=== PATIENT | male | born 1950 | race Caucasian/White ===

== ENCOUNTER 2020-10-30 16:43 | Inpatient (IN) | payer OTHER ==
[~2020-10-30] VITALS: Ht 167.6 cm; Wt 51.7 kg
[2020-10-30 17:20] LABS: HEMATOCRIT. 30.8 % (42.0-52.0); HEMOGLOBIN. 10.3 g/dL (14.0-18.0); MEAN CORPUSCULAR HEMOGLOBIN 29.5 pg (28.0-32.0); MEAN CORPUSCULAR VOLUME 88.6 fL (80.0-94.0); MEAN PLATELET VOLUME 6.7 fl (7.4-10.4); PLATELET 423 x1000/uL (130-400); RED BLOOD CELL COUNT 3.48 mill/uL (4.7-6.1); RED CELL DISTRIBUTION WIDTH 14.4 % (11.6-14.6)
[2020-10-30 17:31] LABS: INR 1.1; PROTHROMBIN TIME 11.2 sec (9.6-11.0)
[2020-10-30 17:36] LABS: CHLORIDE 95 mEq/L (98-107)
[2020-10-30 18:11] LABS: PLATELET ESTIMATE INCREASED
[2020-10-30 18:34] LABS: CLARITY URINE CLEAR (CLEAR); COLOR URINE YELLOW (YELLOW); KETONES URINE TRACE (NEGATIVE); LEUKOCYTE ESTERASE URINE 2+ (NEGATIVE); NITRITE URINE NEGATIVE (NEGATIVE); OCCULT BLOOD URINE TRACE (NEGATIVE); PROTEIN URINE 2+ (NEGATIVE); SPECIFIC GRAVITY URINE 1.021 (1.005-1.030); UROBILINOGEN URINE 0.2 E.U./dL (0.2-1.0)
[2020-10-30] MEDS ORDERED: CLINDAMYCIN 600 MG in DEXTROSE 5% WATER 50 ML IV ONE (19:00)
[2020-10-30] MEDS ORDERED: PIPERACILLIN/TAZOBACTAM 3.375GM/50ML PREMIX IV ONE (19:00)
[2020-10-30] MEDS ORDERED: VANCOMYCIN 1 G PREMIX 200 ML IV SCH (19:00)
[2020-10-30] MEDS ORDERED: PIPERACILLIN/TAZ 3.375G PREMIX 50 ML IV SCH (19:15)
[2020-10-30] MEDS ORDERED: CLINDAMYCIN 600MG PREMIX 50 ML IV SCH (19:15)
[2020-10-30] MEDS ORDERED: SODIUM CHLORIDE 0.9% 1,000 ML IV SCH (19:30)
[2020-10-30] MEDS ORDERED: INSULIN REGULAR (HUMULIN R) 300UNITS/3ML VIAL SUBCUT SCH (19:30)
[2020-10-30] MEDS ORDERED: TRAMADOL 50MG TABLET PO PRN (23:45)
[2020-10-30] MEDS ORDERED: DEXTROSE 50% WATER 50ML SYRINGE IV PRN (23:45)
[2020-10-30] MEDS ORDERED: INSULIN GLARGINE UD 100 UNITS/ML SYR SUBCUT NR (23:45)
[2020-10-30] MEDS ORDERED: ONDANSETRON HCL 4MG/2ML INJ IV PRN (23:45)
[2020-10-31] MEDS ORDERED: PIPERACILLIN/TAZOBACTAM 3.375 G in DEXT 5% WATER 100 ML IV SCH (04:00)
[2020-10-31] MEDS: VANCOMYCIN 750 MG PREMIX 150 ML IV SCH ×2 (06:12→17:24)
[2020-10-31] MEDS ORDERED: INSULIN GLARGINE UD 100 UNITS/ML SYR SUBCUT SCH (10:00)
[2020-10-31 12:00] VITALS: BP 125/55
[2020-10-31 13:00] VITALS: BP 125/55
[2020-10-31] MEDS: BLOOD SUGAR DIAGNOSTIC STRIP TEST SCH ×3 (13:00→21:59)
[2020-10-31] MEDS: INSULIN LISPRO 100 UNITS/ML SUBCUT SCH ×3 (13:00→22:05)
[2020-10-31] MEDS: PIPERACILLIN/TAZOBACTAM 3.375 G in DEXT 5% WATER 100 ML IV SCH ×2 (14:56→22:03)
[2020-10-31 16:00] VITALS: BP 118/53
[2020-10-31] MEDS ORDERED: INFLUENZA VACCINE 05/PF 0.5 ML VIAL IM ONE (22:00)
[2020-10-31] MEDS ORDERED: PNEUMOCOCCAL 23-VAL P-SAC VAC 0.5 ML IM ONE (22:00)
[2020-10-31] MEDS: INSULIN GLARGINE UD 100 UNITS/ML SYR SUBCUT SCH (22:05)
[2020-11-01] MEDS: PIPERACILLIN/TAZOBACTAM 3.375 G in DEXT 5% WATER 100 ML IV SCH ×4 (02:37→20:34)
[2020-11-01] MEDS: VANCOMYCIN 750 MG PREMIX 150 ML IV SCH ×2 (06:19→06:35)
[2020-11-01 06:25] LABS: BASOPHILS % 0.1 % (0.0-2.0); EOSINOPHILS % 0.1 % (0.0-5.0); HEMATOCRIT. 27.2 % (42.0-52.0); HEMOGLOBIN. 9.5 g/dL (14.0-18.0); LYMPHOCYTES % 11.5 % (20.0-50.0); MEAN CORPUSCULAR HEMOGLOBIN 30.8 pg (28.0-32.0); MEAN CORPUSCULAR VOLUME 88.5 fL (80.0-94.0); MEAN PLATELET VOLUME 6.6 fl (7.4-10.4); MONOCYTES % 4.3 % (2.0-8.0); PLATELET 365 x1000/uL (130-400); RED BLOOD CELL COUNT 3.07 mill/uL (4.7-6.1); RED CELL DISTRIBUTION WIDTH 14.4 % (11.6-14.6)
[2020-11-01] MEDS: INSULIN LISPRO 100 UNITS/ML SUBCUT SCH ×4 (07:00→21:00)
[2020-11-01 07:01] LABS: CHLORIDE 105 mEq/L (98-107)
[2020-11-01 08:00] VITALS: BP 140/62
[2020-11-01] MEDS: TAMSULOSIN HCL 0.4MG SR CAPSULE PO SCH ×2 (09:00→09:15)
[2020-11-01] MEDS: INSULIN GLARGINE UD 100 UNITS/ML SYR SUBCUT SCH ×2 (09:24→22:00)
[2020-11-01] MEDS: BLOOD SUGAR DIAGNOSTIC STRIP TEST SCH ×4 (09:24→22:00)
[2020-11-01 12:04] VITALS: BP 149/68
[2020-11-01 12:19] VITALS: BP 138/66
[2020-11-01 16:00] VITALS: BP 136/67
[2020-11-01 20:00] VITALS: BP 146/63
[2020-11-01] MEDS: VANCOMYCIN 500 MG PREMIX 100 ML IV SCH (22:00)
[2020-11-01 23:36] VITALS: BP 121/54
[2020-11-02] MEDS: PIPERACILLIN/TAZOBACTAM 3.375 G in DEXT 5% WATER 100 ML IV SCH ×4 (01:46→21:08)
[2020-11-02 04:00] VITALS: BP 147/75
[2020-11-02] MEDS: INSULIN LISPRO 100 UNITS/ML SUBCUT SCH ×4 (06:49→21:00)
[2020-11-02] MEDS: BLOOD SUGAR DIAGNOSTIC STRIP TEST SCH ×4 (09:00→21:11)
[2020-11-02] MEDS: INSULIN GLARGINE UD 100 UNITS/ML SYR SUBCUT SCH ×2 (10:00→22:00)
[2020-11-02] MEDS: VANCOMYCIN 500 MG PREMIX 100 ML IV SCH ×2 (10:00→21:08)
[2020-11-02] MEDS: TAMSULOSIN HCL 0.4MG SR CAPSULE PO SCH (11:48)
[2020-11-02 19:00] VITALS: BP 135/69
[2020-11-03] VITALS: BP_SYST 108; BP_SYST 128; BP_DIAS 45; BP_DIAS 70
[2020-11-03] MEDS: PIPERACILLIN/TAZOBACTAM 3.375 G in DEXT 5% WATER 100 ML IV SCH ×4 (01:09→20:39)
[2020-11-03 04:00] VITALS: BP 119/98
[2020-11-03] MEDS: INSULIN LISPRO 100 UNITS/ML SUBCUT SCH ×4 (06:15→20:40)
[2020-11-03 08:00] VITALS: BP 134/54
[2020-11-03 08:38] LABS: CREATINE KINASE 100 IU/L (39-308)
[2020-11-03] MEDS: BLOOD SUGAR DIAGNOSTIC STRIP TEST SCH ×4 (09:00→20:41)
[2020-11-03] MEDS: TAMSULOSIN HCL 0.4MG SR CAPSULE PO SCH (09:57)
[2020-11-03] MEDS: INSULIN GLARGINE UD 100 UNITS/ML SYR SUBCUT SCH ×2 (10:40→22:00)
[2020-11-03] MEDS: VANCOMYCIN 500 MG PREMIX 100 ML IV SCH ×2 (10:43→22:56)
[2020-11-03 19:04] VITALS: BP 135/54
[2020-11-03 20:00] VITALS: BP 93/40
[2020-11-04] VITALS: BP 104/52
[2020-11-04] MEDS: PIPERACILLIN/TAZOBACTAM 3.375 G in DEXT 5% WATER 100 ML IV SCH ×4 (02:38→20:33)
[2020-11-04 04:00] VITALS: BP 100/60
[2020-11-04 05:34] LABS: CHLORIDE 104 mEq/L (98-107)
[2020-11-04] MEDS: INSULIN LISPRO 100 UNITS/ML SUBCUT SCH ×4 (06:52→21:16)
[2020-11-04] MEDS ORDERED: POTASSIUM CHLORIDE 20MEQ TABLET SR PO NR (07:00)
[2020-11-04 08:04] VITALS: BP 120/58
[2020-11-04] MEDS: TAMSULOSIN HCL 0.4MG SR CAPSULE PO SCH (08:22)
[2020-11-04] MEDS: BLOOD SUGAR DIAGNOSTIC STRIP TEST SCH ×4 (09:00→20:36)
[2020-11-04] MEDS: INSULIN GLARGINE UD 100 UNITS/ML SYR SUBCUT SCH (10:00)
[2020-11-04] MEDS: SODIUM CHLORIDE 0.45% 1,000 ML IV SCH (14:07)
[2020-11-04] MEDS ORDERED: VANCOMYCIN 750 MG PREMIX 150 ML IV SCH (19:00)
[2020-11-04 20:00] VITALS: BP 127/52
[2020-11-05] VITALS: BP 124/52
[2020-11-05] MEDS: SODIUM CHLORIDE 0.45% 1,000 ML IV SCH ×2 (00:24→16:44)
[2020-11-05] MEDS: PIPERACILLIN/TAZOBACTAM 3.375 G in DEXT 5% WATER 100 ML IV SCH ×4 (01:08→21:13)
[2020-11-05 04:00] VITALS: BP 130/67
[2020-11-05] MEDS: INSULIN LISPRO 100 UNITS/ML SUBCUT SCH ×4 (07:00→21:28)
[2020-11-05 08:00] VITALS: BP 132/57
[2020-11-05] MEDS: TAMSULOSIN HCL 0.4MG SR CAPSULE PO SCH (08:34)
[2020-11-05] MEDS: BLOOD SUGAR DIAGNOSTIC STRIP TEST SCH ×4 (08:35→21:17)
[2020-11-05] MEDS ORDERED: LIDOCAINE HCL 1% 20ML VIAL (Pyxis) INJ ONE ×2 (10:31→11:26)
[2020-11-05] MEDS ORDERED: SODIUM CHLORIDE 0.9% INJ 10ML FLUSH IVF ONE (10:31)
[2020-11-05] MEDS ORDERED: BUPIVACAINE HCL 0.5% (5MG/ML) 50ML ONE (10:31)
[2020-11-05] MEDS ORDERED: SKIN ADHESIVE 0.7 GM EA TOP ONE (10:31)
[2020-11-05] MEDS ORDERED: BACITRACIN 50,000 UNITS/VIAL ONE (10:32)
[2020-11-05] MEDS ORDERED: PROPOFOL 200MG/20ML VIAL IV ONE (11:11)
[2020-11-05] MEDS ORDERED: MIDAZOLAM HCL 2 MG/2 ML VIAL ONE (11:11)
[2020-11-05] MEDS ORDERED: FENTANYL CITRATE/PF 50MCG/ML 2ML VIAL ONE (11:11)
[2020-11-05] MEDS ORDERED: ONDANSETRON HCL 4MG/2ML INJ ONE (11:26)
[2020-11-05] MEDS ORDERED: EPHEDRINE SULFATE 50MG/ML VIAL ONE (11:26)
[2020-11-05] MEDS ORDERED: ONDANSETRON HCL 4MG/2ML INJ IV PRN (11:45)
[2020-11-05] MEDS ORDERED: SODIUM CHLORIDE 0.9% 1,000 ML IV ONE (11:45)
[2020-11-05] MEDS ORDERED: MEPERIDINE HCL/PF 25MG/ML CPJ IV PRN (11:45)
[2020-11-05] MEDS ORDERED: MORPHINE SULFATE 2 MG/ML CPJ (NOT FOR IM USE) IV PRN (11:45)
[2020-11-05] MEDS ORDERED: HYDROMORPHONE HCL/PF 2MG/ML CPJ IV PRN (11:45)
[2020-11-05 17:16] LABS: BASOPHILS % 0.3 % (0.0-2.0); EOSINOPHILS % 0.3 % (0.0-5.0); HEMATOCRIT. 23.8 % (42.0-52.0); LYMPHOCYTES % 11.8 % (20.0-50.0); MEAN CORPUSCULAR VOLUME 88.6 fL (80.0-94.0); MONOCYTES % 3.9 % (2.0-8.0); NEUTROPHILS % 83.7 % (40.0-76.0); PLATELET 159 x1000/uL (130-400); RED BLOOD CELL COUNT 2.68 mill/uL (4.7-6.1)
[2020-11-05 17:25] LABS: CHLORIDE 104 mEq/L (98-107)
[2020-11-05] MEDS: VANCOMYCIN 750 MG PREMIX 150 ML IV SCH (18:22)
[2020-11-06] VITALS: BP 125/51
[2020-11-06] MEDS: PIPERACILLIN/TAZOBACTAM 3.375 G in DEXT 5% WATER 100 ML IV SCH ×4 (01:22→20:49)
[2020-11-06] MEDS: SODIUM CHLORIDE 0.45% 1,000 ML IV SCH (02:45)
[2020-11-06 04:00] VITALS: BP 116/55
[2020-11-06] MEDS: BLOOD SUGAR DIAGNOSTIC STRIP TEST SCH ×4 (05:33→21:00)
[2020-11-06] MEDS: INSULIN LISPRO 100 UNITS/ML SUBCUT SCH ×4 (06:31→21:00)
[2020-11-06 08:00] VITALS: BP 97/43
[2020-11-06] MEDS: TAMSULOSIN HCL 0.4MG SR CAPSULE PO SCH (08:59)
[2020-11-06 12:00] VITALS: BP 133/55
[2020-11-06 15:06] LABS: ANA IFA Negative (.)
[2020-11-06 16:00] VITALS: BP 131/54
[2020-11-06] MEDS: VANCOMYCIN 750 MG PREMIX 150 ML IV SCH (18:21)
[2020-11-06 20:00] VITALS: BP 112/32
[2020-11-06] MEDS ORDERED: ACETAMINOPHEN 325MG TABLET PO PRN (22:00)
[2020-11-06] MEDS ORDERED: HYDROCODONE/ACETAMINOPHEN 5/325MG TABLET PO PRN (22:00)
[2020-11-07] VITALS: BP 110/52
[2020-11-07] MEDS: PIPERACILLIN/TAZOBACTAM 3.375 G in DEXT 5% WATER 100 ML IV SCH ×4 (02:23→21:05)
[2020-11-07 04:00] VITALS: BP 117/49
[2020-11-07 06:36] LABS: CHLORIDE 103 mEq/L (98-107)
[2020-11-07 08:17] VITALS: BP 115/52
[2020-11-07] MEDS: BLOOD SUGAR DIAGNOSTIC STRIP TEST SCH ×3 (09:00→21:05)
[2020-11-07 09:07] LABS: ALDOLASE 6.9 U/L (3.3-10.3); DRVVT LA 39.2 sec (0.0-47.0); LUPUS ANTICOAG INTERPRETATION Comment: (.); PTT-LA 47.7 sec (0.0-51.9)
[2020-11-07] MEDS: TAMSULOSIN HCL 0.4MG SR CAPSULE PO SCH (10:40)
[2020-11-07] MEDS: SODIUM CHLORIDE 0.45% 1,000 ML IV SCH ×2 (10:41→19:43)
[2020-11-07] MEDS ORDERED: TAMS-11 PO (12:02)
[2020-11-07] MEDS ORDERED: INSU100I28 SQ (12:02)
[2020-11-07] MEDS ORDERED: METF-416 MT (12:02)
[2020-11-07 13:06] LABS: ANTI-MYELOPEROXIDASE AB < 9.0 U/mL (0.0-9.0); ANTI-PROTEINASE 3 ABS < 3.5 U/mL (0.0-3.5); ATYPICAL P-ANCA <1:20 titer (Neg:<1:20); CYTOPLASMIC C-ANCA <1:20 titer (Neg:<1:20); PERINUCLEAR P-ANCA <1:20 titer (Neg:<1:20)
[2020-11-07] MEDS: INSULIN LISPRO 100 UNITS/ML SUBCUT SCH ×3 (13:50→21:09)
[2020-11-07 14:08] LABS: ANTI-CARDIOLIPIN AB IGG < 9 GPL U/mL (0-14); ANTI-CARDIOLIPIN AB IGM < 9 MPL U/mL (0-12)
[2020-11-07 16:30] VITALS: BP 136/55
[2020-11-07] MEDS: VANCOMYCIN 750 MG PREMIX 150 ML IV SCH (19:43)
[2020-11-07 20:00] VITALS: BP 97/56
[2020-11-08] VITALS (19 sets, daily range): BP systolic 69–110; BP diastolic 21–145
[2020-11-08] MEDS: PIPERACILLIN/TAZOBACTAM 3.375 G in DEXT 5% WATER 100 ML IV SCH ×4 (02:41→21:06)
[2020-11-08] MEDS: BLOOD SUGAR DIAGNOSTIC STRIP TEST SCH ×4 (06:53→21:06)
[2020-11-08] MEDS: INSULIN LISPRO 100 UNITS/ML SUBCUT SCH ×4 (06:54→21:00)
[2020-11-08] MEDS: SODIUM CHLORIDE 0.45% 1,000 ML IV SCH ×2 (08:05→21:14)
[2020-11-08] MEDS ORDERED: SODIUM CHLORIDE 0.9% 500 ML IV SCH (09:00)
[2020-11-08 10:17] LABS: BASOPHILS % 0.2 % (0.0-2.0); EOSINOPHILS % 0.1 % (0.0-5.0); LYMPHOCYTES % 10.7 % (20.0-50.0); MEAN CORPUSCULAR HEMOGLOBIN 30.3 pg (28.0-32.0); MEAN CORPUSCULAR VOLUME 87.5 fL (80.0-94.0); MONOCYTES % 3.1 % (2.0-8.0); NEUTROPHILS % 85.9 % (40.0-76.0); PLATELET 163 x1000/uL (130-400); RED BLOOD CELL COUNT 1.55 mill/uL (4.7-6.1); RED CELL DISTRIBUTION WIDTH 13.6 % (11.6-14.6)
[2020-11-08 10:28] LABS: CHLORIDE 100 mEq/L (98-107)
[2020-11-08 10:33] LABS: HEMATOCRIT. 13.6 % (42.0-52.0); HEMOGLOBIN. 4.7 g/dL (14.0-18.0)
[2020-11-08] MEDS: TAMSULOSIN HCL 0.4MG SR CAPSULE PO SCH (10:47)
[2020-11-08] MEDS: MIDODRINE HCL 5MG TABLET PO SCH ×2 (14:45→17:40)
[2020-11-08] MEDS: VANCOMYCIN 750 MG PREMIX 150 ML IV SCH (18:27)
[2020-11-08] MEDS ORDERED: SODIUM CHLORIDE 0.9% 500 ML IV ONE (18:45)
[2020-11-09] VITALS (8 sets, daily range): BP systolic 77–104; BP diastolic 32–53
[2020-11-09] MEDS: PIPERACILLIN/TAZOBACTAM 3.375 G in DEXT 5% WATER 100 ML IV SCH ×2 (02:44→09:26)
[2020-11-09] MEDS ORDERED: MIDODRINE HCL 5MG TABLET PO SCH (06:00)
[2020-11-09] MEDS: INSULIN LISPRO 100 UNITS/ML SUBCUT SCH ×2 (06:26→10:49)
[2020-11-09 07:10] LABS: PROTHROMBIN TIME 10.6 sec (9.6-11.0)
[2020-11-09 07:14] LABS: CHLORIDE 104 mEq/L (98-107)
[2020-11-09 07:21] LABS: TOTAL IRON BINDING CAPACITY 247 ug/dL (250-450)
[2020-11-09 08:04] LABS: HEMATOCRIT. 25.1 % (42.0-52.0); HEMOGLOBIN. 8.6 g/dL (14.0-18.0); MEAN CORPUSCULAR HEMOGLOBIN 30.3 pg (28.0-32.0); MEAN CORPUSCULAR VOLUME 88.5 fL (80.0-94.0); MEAN PLATELET VOLUME 7.7 fl (7.4-10.4); PLATELET 158 x1000/uL (130-400); RED BLOOD CELL COUNT 2.84 mill/uL (4.7-6.1); RED CELL DISTRIBUTION WIDTH 13.8 % (11.6-14.6)
[2020-11-09 08:27] LABS: FERRITIN 306 ng/mL (22-322)
[2020-11-09 08:34] LABS: VITAMIN B12 SERUM >2000 pg/mL pg/mL (211-911)
[2020-11-09] MEDS: BLOOD SUGAR DIAGNOSTIC STRIP TEST SCH ×2 (09:00→13:00)
[2020-11-09] MEDS: SODIUM CHLORIDE 0.45% 1,000 ML IV SCH (09:28)
[2020-11-09] MEDS: TAMSULOSIN HCL 0.4MG SR CAPSULE PO SCH (09:28)
[2020-11-09 23:34] LABS: PLATELET ESTIMATE NORMAL
== END 2020-11-09 15:00 | disposition hospice, home (50) | DRG 853 ==
LOC: ER 16:43 → EDBEDREQ 22:04 → EDBEDREQTM 22:04 → EDBEDREQSVC 22:04 → ENRESERV 10-31 10:00 → CANRESERV 10-31 10:07 → ENRESERV 10-31 10:07 → 4WST 10-31 12:32
PROVIDERS: ADMIT Internal Medicine; ATTEND Internal Medicine
PROC: 0JBL0ZZ Excision of Right Upper Leg Subcutaneous Tissue and Fascia, Open Approach (ICD-10-PCS; principal; 2020-11-05)
PROC: 0J9L0ZZ Drainage of Right Upper Leg Subcutaneous Tissue and Fascia, Open Approach (ICD-10-PCS; 2020-11-05)
PROC: 30233N1 Transfusion of Nonautologous Red Blood Cells into Peripheral Vein, Percutaneous Approach (ICD-10-PCS; 2020-11-08)
DX: A41.9 Sepsis, unspecified organism (principal); E43 Unspecified severe protein-calorie malnutrition; M72.6 Necrotizing fasciitis; L03.115 Cellulitis of right lower limb; N39.0 Urinary tract infection, site not specified; E87.1 Hypo-osmolality and hyponatremia; L02.415 Cutaneous abscess of right lower limb; R57.9 Shock, unspecified; Z68.1 Body mass index [BMI] 19.9 or less, adult; D64.9 Anemia, unspecified; E11.65 Type 2 diabetes mellitus with hyperglycemia; E11.51 Type 2 diabetes mellitus with diabetic peripheral angiopathy without gangrene; E87.8 Other disorders of electrolyte and fluid balance, not elsewhere classified; L85.3 Xerosis cutis; L89.90 Pressure ulcer of unspecified site, unspecified stage; E11.22 Type 2 diabetes mellitus with diabetic chronic kidney disease; M19.90 Unspecified osteoarthritis, unspecified site; N18.9 Chronic kidney disease, unspecified; T87.89 Other complications of amputation stump; Z20.822 Contact with and (suspected) exposure to COVID-19; M24.551 Contracture, right hip; M24.552 Contracture, left hip; M24.561 Contracture, right knee; M24.562 Contracture, left knee; Y83.8 Other surgical procedures as the cause of abnormal reaction of the patient, or of later complication, without mention of misadventure at the time of the procedure; Y82.8 Other medical devices associated with adverse incidents; Z51.5 Encounter for palliative care; Y83.5 Amputation of limb(s) as the cause of abnormal reaction of the patient, or of later complication, without mention of misadventure at the time of the procedure; Z89.611 Acquired absence of right leg above knee; Z89.512 Acquired absence of left leg below knee; Z79.899 Other long term (current) drug therapy
CPT/HCPCS: 36415; 71045; 73590; 73630; 73700; 80048; 80053; 80202; 81003; 82040; 82085; 82550; 82607; 82728; 82746; 82962; 83036; 83520; 83540; 83550; 83605; 84134; 84145; 84484; 85025; 85384; 85613; 85732; 86140; 86147; 86160; 86256; 86431; 86850; 86900; 86920; 87070; 87075; 87426; 88304; 90686; 90732; 93005; 93923; 93971; 99291; J1815; J2250; J2405; J2543; J2704; J3010; J3370; J3490; J7040; J7060; P9016